=== PATIENT | female | born 1985 | race Caucasian/White ===

== ENCOUNTER 2019-11-30 19:12 | Observation (INO) | payer MEDICAID ==
[~2019-11-30] VITALS: Ht 165.1 cm; Wt 91.6 kg
[2019-11-30] MEDS ORDERED: CALCIUM (20:23)
[2019-11-30] MEDS ORDERED: PNV1TABL50 PO (20:23)
[2019-11-30] MEDS ORDERED: FERR325T6 PO (20:23)
== END 2019-11-30 21:01 | disposition home or self-care (01) ==
LOC: 8 EST LDRP 19:12
PROVIDERS: ADMIT Obstetrics & Gynecology; ATTEND Obstetrics & Gynecology
DX: O26.893 Other specified pregnancy related conditions, third trimester (principal); R10.9 Unspecified abdominal pain; M54.5 Low back pain; Z3A.38 38 weeks gestation of pregnancy
CPT/HCPCS: 99281; G0378

== ENCOUNTER 2019-12-06 07:17 | Inpatient (IN) | payer MEDICAID ==
[~2019-12-06] VITALS: Ht 165.1 cm; Wt 93.0 kg
[~2019-12-06 07:17] MED LIST: CALCIUM; FERR325T6 PO; PNV1TABL50 PO
[2019-12-06] MEDS ORDERED: DEXT 5%/LR + PITOCIN 20UNITS/L 1,000 ML IV SCH (07:28)
[2019-12-06] MEDS ORDERED: METHYLERGONOVINE MALEATE 0.2 MG/ML IM PRN (07:30)
[2019-12-06] MEDS ORDERED: CARBOPROST TROMETHAMINE 250 MCG/ML AMPUL IM PRN (07:30)
[2019-12-06] MEDS ORDERED: MORPHINE SULFATE/PF 1MG/ML 10ML AMP ONE (07:52)
[2019-12-06] MEDS ORDERED: EPHEDRINE SULFATE 50MG/ML VIAL ONE (07:52)
[2019-12-06] MEDS ORDERED: FENTANYL CITRATE/PF 50MCG/ML 2ML VIAL ONE (07:52)
[2019-12-06] MEDS ORDERED: GLYCOPYRROLATE 0.2 MG/ML 2ML VIAL ONE (07:52)
[2019-12-06] MEDS ORDERED: CEFAZOLIN SODIUM 1000MG/VIAL ONE (07:52)
[2019-12-06] MEDS ORDERED: OXYTOCIN 10 UNITS/ML 1ML ONE (07:52)
[2019-12-06] MEDS ORDERED: ONDANSETRON HCL 4MG/2ML INJ ONE (07:52)
[2019-12-06] MEDS ORDERED: CITRIC ACID/SODIUM CITRATE SOLN 30ML UDC PO NR (08:00)
[2019-12-06] MEDS: LACTATED RINGERS 1,000 ML IV SCH ×2 (08:11→08:29)
[2019-12-06 08:17] LABS: BASOPHILS % 0.6 % (0.0-2.0); EOSINOPHILS % 0.3 % (0.0-5.0); HEMATOCRIT. 39.9 % (36.0-48.0); HEMOGLOBIN. 13.3 g/dL (12.0-16.0); LYMPHOCYTES % 18.8 % (20.0-50.0); MEAN CORPUSCULAR HEMOGLOBIN 29.7 pg (28.0-32.0); MONOCYTES % 5.2 % (2.0-8.0); NEUTROPHILS % 75.1 % (40.0-76.0); PLATELET 169 x1000/uL (130-400); RED BLOOD CELL COUNT 4.48 mill/uL (4.2-5.4); RED CELL DISTRIBUTION WIDTH 13.6 % (11.6-14.6)
[2019-12-06 08:22] LABS: CLARITY URINE CLOUDY (CLEAR); COLOR URINE YELLOW (YELLOW); KETONES URINE NEGATIVE (NEGATIVE); LEUKOCYTE ESTERASE URINE 2+ (NEGATIVE); NITRITE URINE NEGATIVE (NEGATIVE); OCCULT BLOOD URINE NEGATIVE (NEGATIVE); PROTEIN URINE NEGATIVE (NEGATIVE); UROBILINOGEN URINE 0.2 E.U./dL (0.2-1.0)
[2019-12-06 08:24] LABS: INR 0.9; PARTIAL THROMBOPLASTIN TIME 29.1 sec (23.4-31.0); PROTHROMBIN TIME 9.6 sec (9.6-11.0)
[2019-12-06 08:51] LABS: *AMPHETAMINES SCREEN URINE NEGATIVE (NEGATIVE); *BARBITURATES SCREEN URINE NEGATIVE (NEGATIVE); *BENZODIAZEPINES SCREEN URINE NEGATIVE (NEGATIVE); *COCAINE SCREEN URINE NEGATIVE (NEGATIVE); METHADONE URINE SCREEN NEGATIVE (NEGATIVE); OPIATES URINE SCREEN NEGATIVE (NEGATIVE)
[2019-12-06 08:53] LABS: CANNABINOID URINE SCREEN NEGATIVE (NEGATIVE); PHENCYCLIDINE URINE SCREEN NEGATIVE (NEGATIVE)
[2019-12-06] MEDS ORDERED: KETOROLAC 60MG/2ML VIAL IM ONE (10:24)
[2019-12-06] MEDS ORDERED: DIPHENHYDRAMINE 50MG/ML VIAL ONE (10:24)
[2019-12-06] MEDS ORDERED: IBUPROFEN 400MG TABLET PO PRN (11:30)
[2019-12-06] MEDS ORDERED: ONDANSETRON HCL 4MG/2ML INJ IV PRN (11:30)
[2019-12-06] MEDS ORDERED: BISACODYL 10MG SUPP PR PRN (11:30)
[2019-12-06] MEDS ORDERED: NALOXONE HCL 0.4 MG/ML 1ML VIAL IV PRN (11:30)
[2019-12-06] MEDS ORDERED: BUTORPHANOL TARTRATE 2 MG/ML VIAL IV PRN (11:30)
[2019-12-06] MEDS ORDERED: DIPHENHYDRAMINE 50MG/ML VIAL IV PRN (11:30)
[2019-12-06] MEDS ORDERED: DIPHENHYDRAMINE 25MG CAPSULE PO PRN (11:30)
[2019-12-06] MEDS ORDERED: HEMORRHOIDAL SUPP PR PRN (11:30)
[2019-12-06] MEDS ORDERED: METHYLERGONOVINE MALEATE 0.2 MG/ML ONE (11:33)
[2019-12-06 12:17] LABS: HEPATITIS B SURFACE ANTIGEN NEGATIVE
[2019-12-06 13:00] VITALS: BP 120/66
[2019-12-06 14:00] VITALS: BP 110/62
[2019-12-06] MEDS: KETOROLAC 30MG/ML VIAL IV SCH ×2 (15:26→21:47)
[2019-12-06 17:15] VITALS: BP 102/57
[2019-12-06] MEDS: DEXT 5%/LR + PITOCIN 20UNITS/L 1,000 ML IV SCH (18:23)
[2019-12-06 20:00] VITALS: BP 120/71
[2019-12-06] MEDS: DOCUSATE SODIUM 100MG CAPSULE PO SCH (21:00)
[2019-12-06] MEDS: MAGNESIUM/ALUMINUM HYDROXIDE/SIMETHICONE 30ML UDC PO SCH ×2 (21:00→21:02)
[2019-12-06] MEDS: SIMETHICONE 80MG TABLET CHEW PO SCH (21:00)
[2019-12-07] VITALS: BP 111/75
[2019-12-07] MEDS: DEXT 5%/LR + PITOCIN 20UNITS/L 1,000 ML IV SCH (02:00)
[2019-12-07 04:00] VITALS: BP 105/56
[2019-12-07] MEDS: KETOROLAC 30MG/ML VIAL IV SCH (04:10)
[2019-12-07 07:12] LABS: BASOPHILS % 0.2 % (0.0-2.0); EOSINOPHILS % 1.2 % (0.0-5.0); HEMATOCRIT. 34.9 % (36.0-48.0); HEMOGLOBIN. 11.8 g/dL (12.0-16.0); MEAN CORPUSCULAR HEMOGLOBIN 30.2 pg (28.0-32.0); MEAN CORPUSCULAR VOLUME 88.9 fL (81.0-99.0); MEAN PLATELET VOLUME 7.8 fl (7.4-10.4); MONOCYTES % 5.5 % (2.0-8.0); NEUTROPHILS % 78.1 % (40.0-76.0); PLATELET 145 x1000/uL (130-400); RED BLOOD CELL COUNT 3.92 mill/uL (4.2-5.4); RED CELL DISTRIBUTION WIDTH 13.3 % (11.6-14.6)
[2019-12-07 07:30] VITALS: BP 97/53
[2019-12-07] MEDS: SIMETHICONE 80MG TABLET CHEW PO SCH ×3 (08:14→21:02)
[2019-12-07] MEDS: PRENATAL VIT/FE FUMARATE/FA TABLET PO SCH (08:14)
[2019-12-07] MEDS: IBUPROFEN 800MG TABLET PO PRN ×3 (08:56→23:51)
[2019-12-07] MEDS: FERROUS SULFATE 325MG TABLET PO SCH (15:25)
[2019-12-07 15:47] VITALS: BP 99/52
[2019-12-07 19:50] VITALS: BP 120/71
[2019-12-07] MEDS: DOCUSATE SODIUM 100MG CAPSULE PO SCH (21:02)
[2019-12-08] MEDS: HYDROCODONE/ACETAMINOPHEN 5/325MG TABLET PO PRN ×4 (01:15→09:38)
[2019-12-08 05:00] VITALS: BP 105/58
[2019-12-08] MEDS ORDERED: IBUP-2030 MT (05:42)
[2019-12-08 07:30] VITALS: BP 114/58
[2019-12-08] MEDS: FERROUS SULFATE 325MG TABLET PO SCH (09:38)
[2019-12-08] MEDS: PRENATAL VIT/FE FUMARATE/FA TABLET PO SCH (09:38)
== END 2019-12-08 11:00 | disposition home or self-care (01) | DRG 540 ==
LOC: 8 EST LDRP 07:17 → OBSVTOIN 07:17 → 8EST 12:54
PROVIDERS: ADMIT Obstetrics & Gynecology; ATTEND Obstetrics & Gynecology
PROC: 10D00Z1 Extraction of Products of Conception, Low, Open Approach (ICD-10-PCS; principal; 2019-12-06)
DX: O24.429 Gestational diabetes mellitus in childbirth, unspecified control (principal); O34.211 Maternal care for low transverse scar from previous cesarean delivery; O99.214 Obesity complicating childbirth; Z3A.39 39 weeks gestation of pregnancy; Z37.0 Single live birth
CPT/HCPCS: 36415; 80305; 81003; 85025; 86592; 86703; 86762; 86850; 86900; 86920; 87340; 88307; J0595; J0690; J1200; J1885; J2210; J2274; J2405; J2590; J3010; J3490; J7120